=== PATIENT | female | born 1940 | race Caucasian/White ===

== ENCOUNTER → 2020-07-29 08:02 | Outpatient (BNVA) | payer MEDICARE, SELFPAY | PROVIDERS: PCP Internal Medicine; Visit Provider Anesthesiology | DX: M17.0 Bilateral primary osteoarthritis of knee (principal); M47.816 Spondylosis without myelopathy or radiculopathy, lumbar region; E66.9 Obesity, unspecified | CPT/HCPCS: 99212 ==

== ENCOUNTER 2020-08-04 07:58 | Outpatient (REF) | payer MEDICARE, SELFPAY | END 2020-08-04 07:59 | disposition home or self-care (01) | LOC: HO.RADIR 07:58 | PROVIDERS: Visit Provider Anesthesiology | DX: Z13.89 Encounter for screening for other disorder (principal) | CPT/HCPCS: J3010 ==

== ENCOUNTER 2020-08-04 12:52 | Day surgery (SDC) | payer MEDICARE, SELFPAY ==
[2020-08-04 13:07] LABS: Glucose, Whole Blood 179 mg/dL (60-115)
--- NOTE | 2020-08-04 13:12 | P.CONAN_ITS ---
FORMERLY [facility] Past Medical History Medical History Bilateral primary osteoarthritis of knee Obesity Spondylosis of lumbar spine Social History Social History Advance Directives: No Advance Directives Information Provided: Yes Meds Allergies Allergy/AdvReac Type Severity Reaction Status Date / Time dulaglutide [From TRULICITY] Allergy Unknown DROPPED Verified 08/04/20 13:15 SUGARS TOO LOW metformin [METFORMIN] Allergy Unknown GI ISSUES, Verified 08/04/20 13:15 STOMACH PAIN Gztqvvi-Uae-Ayb Reductase Allergy Unknown STOMACH Verified 08/04/20 13:15 Inhibitor ISSUES [[id number] REDUCTASE INHIBITOR] Statins Support Allergy Unknown Unknown Uncoded 07/29/20 08:17 Home Medications Medication Instructions Recorded Confirmed Type acetaminophen 500 mg tablet 500 mg PO Q6H PRN 07/29/20 07/29/20 History allopurinol 300 mg tablet 300 mg PO DAILY 07/29/20 07/29/20 History aspirin 81 mg chewable tablet 81 mg PO DAILY 07/29/20 07/29/20 History brimonidine 0.1 % eye drops 1 drp OPHTHALMIC (EYE) BID 07/29/20 07/29/20 History fenofibrate 160 mg tablet 80 mg PO DAILY 07/29/20 07/29/20 History fenofibrate 50 mg capsule 50 mg PO DAILY 07/29/20 07/29/20 History insulin degludec 200 unit/mL (3 20 unit SUBCUT DAILY 07/29/20 07/29/20 History mL) subcutaneous pen metoprolol tartrate 25 mg tablet 25 mg PO DAILY 07/29/20 07/29/20 History ropinirole 1 mg tablet mg PO 07/29/20 07/29/20 History tramadol 50 mg tablet mg PO 07/29/20 07/29/20 History valsartan 160 mg tablet 160 mg PO DAILY 07/29/20 07/29/20 History insulin aspart U-100 [Novolog unit SUBCUT 08/04/20 08/04/20 History Flexpen U-100 Insulin] insulin degludec [Tresiba unit SUBCUT 08/04/20 History FlexTouch U-200] ipratropium bromide 2 spray INTRANASAL QID PRN 08/04/20 08/04/20 History Exam Exam Date and Time: August 04, 2020 1312 Pertinent Lab Results Pertinent Lab Results: Laboratory Tests 08/04/20 13:03 POC Glucose 179 H Assessment and Plan Assessment Anesthesia Assessment: Anesthesia Plan Discussed and Chart Reviewed Final Anesthetic Review NPO: Yes ASA Class: III Final Preanesthetic Review: No Changes in Pt Med Stat, Meds/Allgs Chart Reviewed, Consent Obtained/Reviewed and Anes Risks/Benef Reviewed Patient Risk: Intermediate Procedure Risk: Low Assessment/Block/Sedation in SS: Assess/Block/Sedation-SS Anesthetic Plan Anesthetic Plan: MAC: Disposition: Standard PACU
[2020-08-04 13:15] VITALS: BP 154/70; PULSE 73; RESP 16; TEMP 36.6; O2SAT 97; BMI 34.7
--- NOTE | 2020-08-04 13:15 | P.CONAN_ITS ---
FORMERLY [facility] Past Medical History Medical History Bilateral primary osteoarthritis of knee Obesity Spondylosis of lumbar spine Social History Social History Advance Directives: No Advance Directives Information Provided: Yes Meds Allergies Allergy/AdvReac Type Severity Reaction Status Date / Time dulaglutide [From TRULICITY] Allergy Unknown DROPPED Verified 08/04/20 13:15 SUGARS TOO LOW metformin [METFORMIN] Allergy Unknown GI ISSUES, Verified 08/04/20 13:15 STOMACH PAIN Llhbdnc-Bqn-Qom Reductase Allergy Unknown STOMACH Verified 08/04/20 13:15 Inhibitor ISSUES [[id number]-DYK-VZN REDUCTASE INHIBITOR] Statins Support Allergy Unknown Unknown Uncoded 07/29/20 08:17 Home Medications Medication Instructions Recorded Confirmed Type acetaminophen 500 mg tablet 500 mg PO Q6H PRN 07/29/20 07/29/20 History allopurinol 300 mg tablet 300 mg PO DAILY 07/29/20 07/29/20 History aspirin 81 mg chewable tablet 81 mg PO DAILY 07/29/20 07/29/20 History brimonidine 0.1 % eye drops 1 drp OPHTHALMIC (EYE) BID 07/29/20 07/29/20 History fenofibrate 160 mg tablet 80 mg PO DAILY 07/29/20 07/29/20 History fenofibrate 50 mg capsule 50 mg PO DAILY 07/29/20 07/29/20 History insulin degludec 200 unit/mL (3 20 unit SUBCUT DAILY 07/29/20 07/29/20 History mL) subcutaneous pen metoprolol tartrate 25 mg tablet 25 mg PO DAILY 07/29/20 07/29/20 History ropinirole 1 mg tablet mg PO 07/29/20 07/29/20 History tramadol 50 mg tablet mg PO 07/29/20 07/29/20 History valsartan 160 mg tablet 160 mg PO DAILY 07/29/20 07/29/20 History insulin aspart U-100 [Novolog unit SUBCUT 08/04/20 08/04/20 History Flexpen U-100 Insulin] insulin degludec [Tresiba unit SUBCUT 08/04/20 History FlexTouch U-200] ipratropium bromide 2 spray INTRANASAL QID PRN 08/04/20 08/04/20 History Exam Exam Date and Time: August 04, 2020 1315 Pertinent Lab Results Pertinent Lab Results: Laboratory Tests 08/04/20 13:03 POC Glucose 179 H Airway Mallampati Class: II TM Dist: >3cm Neck ROM: Full Assessment and Plan Assessment Anesthesia Assessment: Anesthesia Plan Discussed and Chart Reviewed Final Anesthetic Review NPO: Yes ASA Class: III Final Preanesthetic Review: No Changes in Pt Med Stat, Meds/Allgs Chart Reviewed, Consent Obtained/Reviewed and Anes Risks/Benef Reviewed Patient Risk: Intermediate Procedure Risk: Low Assessment/Block/Sedation in SS: Assess/Block/Sedation-SS Anesthetic Plan Anesthetic Plan: MAC: Disposition: Standard PACU
--- NOTE | 2020-08-04 13:17 | P.CONAN_ITS ---
FORMERLY [facility], [facility] Past Medical History Medical History Bilateral primary osteoarthritis of knee Obesity Spondylosis of lumbar spine Social History Social History Advance Directives: No Advance Directives Information Provided: Yes Meds Allergies Allergy/AdvReac Type Severity Reaction Status Date / Time dulaglutide [From TRULICITY] Allergy Unknown DROPPED Verified 08/04/20 13:15 SUGARS TOO LOW metformin [METFORMIN] Allergy Unknown GI ISSUES, Verified 08/04/20 13:15 STOMACH PAIN Btlbsha-Zuo-Mjl Reductase Allergy Unknown STOMACH Verified 08/04/20 13:15 Inhibitor ISSUES [IMURCCE-DTQ-XIC REDUCTASE INHIBITOR] Statins Support Allergy Unknown Unknown Uncoded 07/29/20 08:17 Home Medications Medication Instructions Recorded Confirmed Type acetaminophen 500 mg tablet 500 mg PO Q6H PRN 07/29/20 07/29/20 History allopurinol 300 mg tablet 300 mg PO DAILY 07/29/20 07/29/20 History aspirin 81 mg chewable tablet 81 mg PO DAILY 07/29/20 07/29/20 History brimonidine 0.1 % eye drops 1 drp OPHTHALMIC (EYE) BID 07/29/20 07/29/20 History fenofibrate 160 mg tablet 80 mg PO DAILY 07/29/20 07/29/20 History fenofibrate 50 mg capsule 50 mg PO DAILY 07/29/20 07/29/20 History insulin degludec 200 unit/mL (3 20 unit SUBCUT DAILY 07/29/20 07/29/20 History mL) subcutaneous pen metoprolol tartrate 25 mg tablet 25 mg PO DAILY 07/29/20 07/29/20 History ropinirole 1 mg tablet mg PO 07/29/20 07/29/20 History tramadol 50 mg tablet mg PO 07/29/20 07/29/20 History valsartan 160 mg tablet 160 mg PO DAILY 07/29/20 07/29/20 History insulin aspart U-100 [Novolog unit SUBCUT 08/04/20 08/04/20 History Flexpen U-100 Insulin] insulin degludec [Tresiba unit SUBCUT 08/04/20 History FlexTouch U-200] ipratropium bromide 2 spray INTRANASAL QID PRN 08/04/20 08/04/20 History Exam Exam Date and Time: August 04, 2020 1317 Pertinent Lab Results Pertinent Lab Results: Laboratory Tests 08/04/20 13:03 POC Glucose 179 H Airway Mallampati Class: II TM Dist: >3cm Neck ROM: Limited Assessment and Plan Assessment Anesthesia Assessment: Anesthesia Plan Discussed and Chart Reviewed Final Anesthetic Review NPO: Yes ASA Class: III Final Preanesthetic Review: No Changes in Pt Med Stat, Meds/Allgs Chart Reviewed, Consent Obtained/Reviewed and Anes Risks/Benef Reviewed Patient Risk: Intermediate Procedure Risk: Low Assessment/Block/Sedation in SS: Assess/Block/Sedation-SS Anesthetic Plan Anesthetic Plan: MAC: Disposition: Standard PACU
--- NOTE | 2020-08-04 13:18 | P.CONAN_ITS ---
[facility] Past Medical History Medical History Bilateral primary osteoarthritis of knee Obesity Spondylosis of lumbar spine Social History Social History Smoking Status: Never smoker Use of substances other than those prescribed or required for medical reasons: No Advance Directives: No Advance Directives Information Provided: Yes Meds Allergies Allergy/AdvReac Type Severity Reaction Status Date / Time dulaglutide [From TRULICITY] Allergy Unknown DROPPED Verified 08/04/20 13:15 SUGARS TOO LOW metformin [METFORMIN] Allergy Unknown GI ISSUES, Verified 08/04/20 13:15 STOMACH PAIN Pyswidi-Daj-Cze Reductase Allergy Unknown STOMACH Verified 08/04/20 13:15 Inhibitor ISSUES [[id number] REDUCTASE INHIBITOR] Statins Support Allergy Unknown Unknown Uncoded 07/29/20 08:17 Home Medications Medication Instructions Recorded Confirmed Type acetaminophen 500 mg tablet 500 mg PO Q6H PRN 07/29/20 07/29/20 History allopurinol 300 mg tablet 300 mg PO DAILY 07/29/20 07/29/20 History aspirin 81 mg chewable tablet 81 mg PO DAILY 07/29/20 07/29/20 History brimonidine 0.1 % eye drops 1 drp OPHTHALMIC (EYE) BID 07/29/20 07/29/20 History fenofibrate 160 mg tablet 80 mg PO DAILY 07/29/20 07/29/20 History fenofibrate 50 mg capsule 50 mg PO DAILY 07/29/20 07/29/20 History insulin degludec 200 unit/mL (3 20 unit SUBCUT DAILY 07/29/20 07/29/20 History mL) subcutaneous pen metoprolol tartrate 25 mg tablet 25 mg PO DAILY 07/29/20 07/29/20 History ropinirole 1 mg tablet mg PO 07/29/20 07/29/20 History tramadol 50 mg tablet mg PO 07/29/20 07/29/20 History valsartan 160 mg tablet 160 mg PO DAILY 07/29/20 07/29/20 History insulin aspart U-100 [Novolog unit SUBCUT 08/04/20 08/04/20 History Flexpen U-100 Insulin] insulin degludec [Tresiba unit SUBCUT 08/04/20 History FlexTouch U-200] ipratropium bromide 2 spray INTRANASAL QID PRN 08/04/20 08/04/20 History Exam Exam Date and Time: August 04, 2020 1318 Pertinent Lab Results Pertinent Lab Results: Laboratory Tests 08/04/20 13:03 POC Glucose 179 H Airway Mallampati Class: II TM Dist: >3cm Neck ROM: Limited Assessment and Plan Assessment Anesthesia Assessment: Anesthesia Plan Discussed Final Anesthetic Review NPO: Yes ASA Class: III Final Preanesthetic Review: No Changes in Pt Med Stat, Meds/Allgs Chart Reviewed, Consent Obtained/Reviewed and Anes Risks/Benef Reviewed Patient Risk: Intermediate Procedure Risk: Low Assessment/Block/Sedation in SS: Assess/Block/Sedation-SS Anesthetic Plan Anesthetic Plan: MAC: Disposition: Standard PACU
--- NOTE | 2020-08-04 13:23 | HO.ANESPROP2 ---
[facility] Past Medical History Medical History Bilateral primary osteoarthritis of knee Obesity Spondylosis of lumbar spine Social History Social History Smoking Status: Never smoker Use of substances other than those prescribed or required for medical reasons: No Advance Directives: No Advance Directives Information Provided: Yes Meds Allergies Allergy/AdvReac Type Severity Reaction Status Date / Time dulaglutide [From TRULICITY] Allergy Unknown DROPPED Verified 08/04/20 13:15 SUGARS TOO LOW metformin [METFORMIN] Allergy Unknown GI ISSUES, Verified 08/04/20 13:15 STOMACH PAIN Qzsekzl-Jpa-Kab Reductase Allergy Unknown STOMACH Verified 08/04/20 13:15 Inhibitor ISSUES [NRIQALK-UBM-RTE REDUCTASE INHIBITOR] Statins Support Allergy Unknown Unknown Uncoded 07/29/20 08:17 Home Medications Medication Instructions Recorded Confirmed Type acetaminophen 500 mg tablet 500 mg PO Q6H PRN 07/29/20 07/29/20 History allopurinol 300 mg tablet 300 mg PO DAILY 07/29/20 07/29/20 History aspirin 81 mg chewable tablet 81 mg PO DAILY 07/29/20 07/29/20 History brimonidine 0.1 % eye drops 1 drp OPHTHALMIC (EYE) BID 07/29/20 07/29/20 History fenofibrate 160 mg tablet 80 mg PO DAILY 07/29/20 07/29/20 History fenofibrate 50 mg capsule 50 mg PO DAILY 07/29/20 07/29/20 History insulin degludec 200 unit/mL (3 20 unit SUBCUT DAILY 07/29/20 07/29/20 History mL) subcutaneous pen metoprolol tartrate 25 mg tablet 25 mg PO DAILY 07/29/20 07/29/20 History ropinirole 1 mg tablet mg PO 07/29/20 07/29/20 History tramadol 50 mg tablet mg PO 07/29/20 07/29/20 History valsartan 160 mg tablet 160 mg PO DAILY 07/29/20 07/29/20 History insulin aspart U-100 [Novolog unit SUBCUT 08/04/20 08/04/20 History Flexpen U-100 Insulin] insulin degludec [Tresiba unit SUBCUT 08/04/20 History FlexTouch U-200] ipratropium bromide 2 spray INTRANASAL QID PRN 08/04/20 08/04/20 History Exam Exam Date and Time: August 04, 2020 1323 Height,Weight and Vital Signs: Height 5 ft 3 in Weight 88.904 kg Last Vital Signs Temp 97.9 F 08/04/20 13:15 Pulse 73 08/04/20 13:15 Resp 16 08/04/20 13:15 BP 154/70 H 08/04/20 13:15 Pulse Ox 97 08/04/20 13:15 Pertinent Lab Results Pertinent Lab Results: Laboratory Tests 08/04/20 13:03 POC Glucose 179 H Airway TM Dist: >3cm Neck ROM: Limited Assessment and Plan Assessment Anesthesia Assessment: Anesthesia Plan Discussed Final Anesthetic Review NPO: Yes ASA Class: III Final Preanesthetic Review: No Changes in Pt Med Stat, Meds/Allgs Chart Reviewed, Consent Obtained/Reviewed and Anes Risks/Benef Reviewed Patient Risk: Intermediate Procedure Risk: Low Assessment/Block/Sedation in SS: Assess/Block/Sedation-SS Anesthetic Plan Anesthetic Plan: MAC: Disposition: Standard PACU
--- NOTE | 2020-08-04 13:33 | FL_ITS ---
INDICATION: Intraoperative fluoroscopy. FLUOROSCOPY: Fluoroscopy Time: 2.4 minutes Dose: 90.1 mGy Images saved: 4 FINDINGS: Multiple intraoperative fluoroscopic images are submitted during reported spinal stimulator trial. Correlation with operative report. Evaluation is limited secondary to fluoroscopic technique. IMPRESSION: Intra-operative fluoroscopic imaging provided by radiology during reported spinal stimulator trial. Please refer to operative note for further information.
[2020-08-04] MEDS: Lactated Ringers 1,000 ML 50 ML IVCONT (13:50)
--- NOTE | 2020-08-04 13:54 | MHC.SHP ---
Pre-Procedural Eval Section A The patient is an INPATIENT: No Changes since office visit: Yes Patient answered all questions The History & Physical has been completed within 30 days and I have reviewed it.: No Section B Chief Complaint: madi primary osteoarthritis of knee Details of Present Illness: knee osteoarthritis left Relevant Family History (Specify if Yes): No Relevant Social History: None Present Medications: None Medical History: No relevant PMH Allergies: Allergies Allergy/AdvReac Type Severity Reaction Status Date / Time dulaglutide [From TRULICITY] Allergy Unknown DROPPED Verified 08/04/20 13:15 SUGARS TOO LOW metformin [METFORMIN] Allergy Unknown GI ISSUES, Verified 08/04/20 13:15 STOMACH PAIN Eknrhbh-Kqb-Zvc Reductase Allergy Unknown STOMACH Verified 08/04/20 13:15 Inhibitor ISSUES [[id number] REDUCTASE INHIBITOR] Statins Support Allergy Unknown Unknown Uncoded 07/29/20 08:17 Review of Systems Sugical H&P ROS: Negative: Cardiovascular, Respiratory, Neurological, Psychiatric, Hem-Onc, Allergic/Immunologic, Gastrointestinal, Genitourinary, Musculoskeletal, Integumentary, Endocrine and Eyes/Ears/Nose/Throat and Yes, Specify: Constitution (obesity) Exam Surgical H&P Exam: Normal: HEENT, Normal: Heart, Normal: Lungs, Normal: Extremities, Normal: Skin and Normal: Neurological and Significant Findings: Abdomen (obesity) Plan Diagnosis/Plan: Change I have reviewed the history and physical and performed a pertinent physical examination on my patient. No changes have occurred unless specified.
[2020-08-04 15:35] VITALS: BP 136/54; PULSE 64; RESP 16; TEMP 36.4; O2SAT 98
[2020-08-04 15:50] VITALS: BP 144/45; PULSE 61; RESP 18; O2SAT 100
[2020-08-04] MEDS: Acetaminophen 325 MG TABLET 650 MG PO (16:04)
[2020-08-04 16:05] VITALS: BP 123/56; PULSE 66; RESP 16; O2SAT 100
[2020-08-04 16:20] VITALS: BP 140/64; PULSE 68; RESP 18; O2SAT 100
--- NOTE | 2020-08-04 16:41 | PM.OP ---
Brief Operative Note Date of Service: 08/04/20 Pre-op diagnosis: Left knee osteoarthritis Post-op diagnosis: same Implants: None permanent Surgeon: Jameson Carrasco MD Anesthesia: MAC Estimated blood loss (mL): 0 Condition: stable Disposition: PACU
--- NOTE | 2020-08-04 16:45 | P.OP_ITS ---
Operative Note Operative Note Date of Service: 08/04/20 Narrative: After obtaining informed consent the patient was brought to the operating room, SHE was positioned prone on operating table, [employer] monitors were applied and patient was deeply sedated. The patient was taken inside of the operating room where she was positioned prone operating table. Time-out was performed delineating correct site, side, the nature of the procedure, patient's allergy, preoperative antibiotic if needed. All operating room staff was participating in OR time-out procedure. Patient's entire back was prepped with ChloraPrep twice and draped with full body fenestrated drape. Sterilely draped C-arm was brought over operating field and square picture of L1 through L5 vertebrae sequentially were demonstrated on the screen. Attention FIRST was concentrated on the L5-S1 epidural interspace. The location of the projection of the left pedicle center of the sacral bone was found on the skin using C-arm. This location was injected with mixture of lidocaine 2% and Marcaine 0.5% 5 cc. After that 11 blade was used to make a endy on the skin. Ten cm 14 gauge curved introducer epidural needle was inserted through the endy and advanced to the left L5-S1 epidural interspace. The advancement of the needle was performed on anterior posterior and lateral views. Guitar wire and loss of resistance technique were used to locate epidural space. When guitar wire was spread in the epidural fashion, epidural lead was inserted through the skin and it was advanced to L2-L3 L4 position in the left gutter. It was 16 contacts electrode used for the advancement. After that location of the projection of the left pedicle center of the L3 vertebra was found on the skin using C-arm. This location was injected with mixture of lidocaine 2% and Marcaine 0.5% 5 cc. After that 11 blade was used to make a endy on the skin. Ten cm 14 gauge curved introducer epidural needle was inserted through the endy and advanced to L1-L2 epidural interspace. The advancement of the needle was performed on anterior posterior and lateral views. Guitar wire and loss of resistance technique were used to locate epidural space. When guitar wire was spread in the epidural fashion, epidural lead was inserted through the needle and advanced to the T 9 mid body projection slightly to the left of midline. At this moment patient was awaken and the epidural leads were connected to the testing device. The patient reported stimulation corresponding to her pain. After satisfactory position of the leads were established the needles were withdrawn, the stylette wires were removed from the epidural leads. The anchoring devices were dislodged on the leads and advanced to the level of the skin. The anchoring devices were sutured with two 0-0 silk sutures to the skin of the patient. The leads were connected to testing device. Bacitracin ointment was applied to the entrance point of the needles. Sterile dressing was applied to the patient's back. The testing device was also glued to the patient's back. Upon completion of the procedure the patient was taken to PACU where SHE recovered and UNEVENTFULLY, SHE WENT HOME WITHOUT IMMEDIATE COMPLICATIONS. , she will continue to use ANTIBIOTICS: Keflex 750 mg every 6 hours for the next 6 days while she is on the trial.
== END 2020-08-04 17:25 | disposition home or self-care (01) ==
PROVIDERS: PCP Internal Medicine; Visit Provider Anesthesiology
PROC: (CPT 63650; principal; 2020-08-04 14:00)
DX: M17.0 Bilateral primary osteoarthritis of knee (principal); M47.816 Spondylosis without myelopathy or radiculopathy, lumbar region; E66.9 Obesity, unspecified; Z96.653 Presence of artificial knee joint, bilateral; E11.22 Type 2 diabetes mellitus with diabetic chronic kidney disease; I12.9 Hypertensive chronic kidney disease with stage 1 through stage 4 chronic kidney disease, or unspecified chronic kidney disease; N18.30 Chronic kidney disease, stage 3 unspecified; E11.3293 Type 2 diabetes mellitus with mild nonproliferative diabetic retinopathy without macular edema, bilateral; E11.21 Type 2 diabetes mellitus with diabetic nephropathy; E11.40 Type 2 diabetes mellitus with diabetic neuropathy, unspecified; Z66 Do not resuscitate; Z79.899 Other long term (current) drug therapy; Z79.84 Long term (current) use of oral hypoglycemic drugs; Z79.82 Long term (current) use of aspirin
CPT/HCPCS: 63650 ×2; 82947; C1778; C1897; J0690; J3010

== ENCOUNTER → 2020-08-10 15:23 | Outpatient (BNVA) | payer MEDICARE, SELFPAY | PROVIDERS: PCP Internal Medicine; Visit Provider Anesthesiology | DX: M17.0 Bilateral primary osteoarthritis of knee (principal); M47.816 Spondylosis without myelopathy or radiculopathy, lumbar region; E66.9 Obesity, unspecified | CPT/HCPCS: 99212 ==

== ENCOUNTER → 2020-09-10 09:59 | Outpatient (BNVA) | payer MEDICARE, SELFPAY | PROVIDERS: PCP Internal Medicine; Visit Provider Anesthesiology | DX: M17.0 Bilateral primary osteoarthritis of knee (principal); Z79.899 Other long term (current) drug therapy | CPT/HCPCS: Q3014 ==

== ENCOUNTER 2020-11-12 12:21 | Outpatient (REF) | payer MEDICARE, SELFPAY ==
[2020-11-12 13:50] LABS: MANUAL DIFF FLAG NO
[2020-11-12 14:01] LABS: Basophils Percent Auto 0.5 % (0-2); Eosinophils Absolute Auto 0.1 X10*3/uL (0.0-0.4); Eosinophils Percent Auto 2.1 % (0-4); Hemoglobin 12.4 g/dl (12.0-16.0); Imm Gran Abs Auto 0.02 X10*3/uL (0.00-0.03); Imm Gran Pct Auto 0.4 % (0.0-0.4); Lymphocytes Absolute Auto 0.9 X10*3/uL (1.2-4.9); Mean Corpuscular HGB Conc 33.5 g/dl (31.0-35.0); Mean Corpuscular Hemoglobin 32.5 pg (27.0-33.0); Mean Corpuscular Volume 97.1 fL (80-98); Mean Platelet Volume 12.3 fL (9.4-12.3); Monocytes Absolute Auto 0.4 X10*3/uL (0.1-1.2); Monocytes Percent Auto 6.3 % (2-11); Neutrophils Absolute Auto 4.2 X10*3/uL (2.0-8.3); Neutrophils Percent Auto 74.7 % (45-73); Platelet Count 106 X10*3/uL (160-400); Red Blood Count 3.81 X10*6/uL (4.20-5.50); Red Cell Distribution Width 14.9 % (11.0-16.0); White Blood Count 5.7 X10*3/uL (4.8-10.8)
[2020-11-12 14:21] LABS: Anion Gap 12 (12-20); Blood Urea Nitrogen 38 mg/dL (9-16); Calcium 9.7 mg/dL (8.4-10.2); Carbon Dioxide 23 mmol/L (22-29); Chloride 108 mmol/L (96-108); Estimated Glomerular Filt Rate 38; Glucose Random 325 mg/dL (60-115); Potassium 4.5 mmol/L (3.3-5.1); Sodium 138 mmol/L (135-145)
== END 2020-11-12 12:22 | disposition home or self-care (01) ==
LOC: HO.10HDL 12:21
PROVIDERS: Visit Provider Anesthesiology
DX: N28.9 Disorder of kidney and ureter, unspecified (principal); D69.6 Thrombocytopenia, unspecified
CPT/HCPCS: 36415; 80048; 85025

== ENCOUNTER 2020-11-13 06:06 | Day surgery (SDC) | payer MEDICARE, SELFPAY ==
[2020-11-09 13:55] VITALS: BMI 34.7
--- NOTE | 2020-11-11 09:54 | P.CONAN_ITS ---
Documented by User: Laina Johnstonney 11/11/20 09:55 HPI - Anesthesia Eval Consult details Narrative: 80yo F for Lumbar Spinal Stimulation Implant s/p implant trial with MAC 08/2020 [facility] Active Problems Active Problems: All Active Problems (Updated 11/09/20 @ 14:15 by Elodia Willson) Spondylosis of lumbar spine (Acute) Obesity (Acute) Bilateral primary osteoarthritis of knee (Acute) Past Medical History Medical History Back pain Bilateral primary osteoarthritis of knee COVID-19 vaccine series completed Glaucoma Heart murmur History of high cholesterol Hx of acute pulmonary edema Hx of acute renal failure Hx of acute respiratory failure Hypertension IDDM (insulin dependent diabetes mellitus) Migraines Narrow mouth Obesity Pain Renal insufficiency Sleep apnea Spondylosis of lumbar spine Thrombocytopenia Surgical History Surgical History H/O total knee replacement History of carpal tunnel release of both wrists Hx of bilateral oophorectomy Hx of thyroidectomy Social History Social History Alcohol intake: never Smoking Status: Never smoker Are you DNR?: No Advance Directives: No Advance Directives Information Provided: No Advance Directives on File: No Meds Allergies Allergy/AdvReac Type Severity Reaction Status Date / Time d[facility]aglutide [facility] Allergy Intermediate DROPPED Verified 11/09/20 13:43 SUGARS TOO LOW metformin [METFORMIN] Allergy Intermediate GI ISSUES, Verified 11/09/20 13:43 STOMACH PAIN Wjqripk-Rtb-Hxj Reductase Allergy Intermediate STOMACH Verified 11/09/20 13:43 Inhibitor ISSUES [CSTVSIR-PIE-ABG REDUCTASE INHIBITOR] Home Medications Medication Instructions Recorded Confirmed Last Taken Type allopurinol 300 mg tablet 300 mg PO BEDTIME 07/29/20 11/09/20 Unknown History aspirin 81 mg chewable tablet 81 mg PO DAILY 07/29/20 11/09/20 11/01/20 18:00 History brimonidine 0.1 % eye drops 1 drp OPHTHALMIC (EYE) BEDTIME 07/29/20 11/09/20 Unknown History fenofibrate 160 mg tablet 80 mg PO DAILY 07/29/20 11/09/20 Unknown History insulin degludec 200 unit/mL (3 80 unit SUBCUT DAILY@0730 07/29/20 11/09/20 Unknown History mL) subcutaneous pen metoprolol tartrate 25 mg tablet 25 mg PO BID 07/29/20 11/09/20 11/13/20 04:45 History ropinirole 1 mg tablet 1 mg PO BID 07/29/20 11/09/20 Unknown History tramadol 50 mg tablet 50 mg PO QID 07/29/20 11/09/20 11/13/20 04:45 History valsartan 160 mg tablet 80 mg PO BEDTIME 07/29/20 11/09/20 08/04/20 08:00 History ipratropium bromide 2 spray INTRANASAL QID PRN 08/04/20 11/09/20 Unknown History bimatoprost [Lumigan] drp 11/09/20 Unknown History insulin aspart U-100 [Novolog unit SUBCUT 11/09/20 11/09/20 Unknown History Flexpen U-100 Insulin] nprduorvzlnm-bwxbruef-jaizua 1 tab PO DAILY 11/09/20 11/09/20 Unknown History [Centrum Silver] topiramate 50 mg PO DAILY@0730 11/09/20 11/09/20 Unknown History Exam Exam Date and Time: November 11, 2020 0954 Height,Weight and Vital Signs: Height 5 ft 3 in Weight 88.904 kg Assessment and Plan Assessment Anesthesia Assessment: Chart Reviewed Documented by User: Faiza Velez 11/13/20 08:01 [facility] Past Medical History Medical History Back pain Bilateral primary osteoarthritis of knee COVID-19 vaccine series completed Glaucoma Heart murmur History of high cholesterol Hx of acute pulmonary edema Hx of acute renal failure Hx of acute respiratory failure Hypertension IDDM (insulin dependent diabetes mellitus) Migraines Narrow mouth Obesity Pain Renal insufficiency Sleep apnea Spondylosis of lumbar spine Thrombocytopenia Surgical History Surgical History H/O total knee replacement History of carpal tunnel release of both wrists Hx of bilateral oophorectomy Hx of thyroidectomy Social History Social History Alcohol intake: never Smoking Status: Never smoker Are you DNR?: No Advance Directives: No Advance Directives Information Provided: No Advance Directives on File: No Meds Allergies Allergy/AdvReac Type Severity Reaction Status Date / Time dulaglutide [From TRULICITY] Allergy Intermediate DROPPED Verified 11/09/20 13:43 SUGARS TOO LOW metformin [METFORMIN] Allergy Intermediate GI ISSUES, Verified 11/09/20 13:43 STOMACH PAIN Btxqfxl-Iuf-Afz Reductase Allergy Intermediate STOMACH Verified 11/09/20 13:43 Inhibitor ISSUES [WUAGCYR-SOB-VTT REDUCTASE INHIBITOR] Home Medications Medication Instructions Recorded Confirmed Last Taken Type allopurinol 300 mg tablet 300 mg PO BEDTIME 07/29/20 11/09/20 Unknown History aspirin 81 mg chewable tablet 81 mg PO DAILY 07/29/20 11/09/20 11/01/20 18:00 History brimonidine 0.1 % eye drops 1 drp OPHTHALMIC (EYE) BEDTIME 07/29/20 11/09/20 Unknown History fenofibrate 160 mg tablet 80 mg PO DAILY 07/29/20 11/09/20 Unknown History insulin degludec 200 unit/mL (3 80 unit SUBCUT DAILY@0730 07/29/20 11/09/20 Unknown History mL) subcutaneous pen metoprolol tartrate 25 mg tablet 25 mg PO BID 07/29/20 11/09/20 11/13/20 04:45 History ropinirole 1 mg tablet 1 mg PO BID 07/29/20 11/09/20 Unknown History tramadol 50 mg tablet 50 mg PO QID 07/29/20 11/09/20 11/13/20 04:45 History valsartan 160 mg tablet 80 mg PO BEDTIME 07/29/20 11/09/20 08/04/20 08:00 History ipratropium bromide 2 spray INTRANASAL QID PRN 08/04/20 11/09/20 Unknown History bimatoprost [Lumigan] drp 11/09/20 Unknown History insulin aspart U-100 [Novolog unit SUBCUT 11/09/20 11/09/20 Unknown History Flexpen U-100 Insulin] dzclzpmnrmnh-dpexjwff-smegxr 1 tab PO DAILY 11/09/20 11/09/20 Unknown History [Centrum Silver] topiramate 50 mg PO DAILY@0730 11/09/20 11/09/20 Unknown History Exam Airway Mallampati Class: III TM Dist: >3cm Neck ROM: Full
[2020-11-13] VITALS (7 sets, daily range): BP systolic 119–174; BP diastolic 41–76; PULSE 53–71; RESP 14–18; TEMP 36.4–36.5; O2SAT 94–99
--- NOTE | ~2020-11-13 | FL_ITS ---
EXAMINATION: XR FLUOROSCOPY WITH IMAGES CLINICAL INFORMATION: Spinal stimulator implant. COMPARISON: None. TECHNIQUE: Fluoroscopy performed by Dr. Jameson Carrasco. Fluoroscopy time: 6.4 minutes DAP: 41.7 mGycm2 Images: 4 FINDINGS: There is a posterior epidural stimulator posterior to T11 and T12 vertebrae. Moderate spondylosis seen in lower dorsal and upper lumbar spine. FL/FL guidance in OR IMPRESSION: Fluoroscopy was provided to Dr. Jameson Carrasco for spinal stimulator implant.
[2020-11-13 06:54] LABS: Glucose, Whole Blood 201 mg/dL (60-115)
[2020-11-13] MEDS: Lactated Ringers 1,000 ML 50 ML IV (07:03)
--- NOTE | 2020-11-13 07:26 | P.BOP_ITS ---
Brief Operative Note Date of Service: 11/13/20 Pre-op diagnosis: Complex regional pain syndrome left lower extremity, osteoarthritis left knee. Post-op diagnosis: same Procedure: Implantation of the spinal cord stimulator [employer]. Implants: Alpha battery [employer] and 2 epidural leads. Surgeon: Jameson Carrasco MD Anesthesia: GLMA Was an Senior [employer] Net Developer used for this Procedure?: No Estimated blood loss (mL): 12 Pathology: none sent Condition: stable Disposition: PACU
--- NOTE | 2020-11-13 07:26 | MHC.SHP ---
Pre-Procedural Eval Section A The patient is an INPATIENT: No Changes since office visit: Yes Patient answered all questions The History & Physical has been completed within 30 days and I have reviewed it.: No Section B Chief Complaint: Bilateral Primary osteoarthritis of knee Details of Present Illness: as above Relevant Family History (Specify if Yes): No Relevant Social History: None Present Medications: None Medical History: No relevant PMH History of Previous Operations: Relevant previous surgery/procedure and date(s) Allergies: Allergies Allergy/AdvReac Type Severity Reaction Status Date / Time dulaglutide [From TRULICITY] Allergy Intermediate DROPPED Verified 11/09/20 13:43 SUGARS TOO LOW metformin [METFORMIN] Allergy Intermediate GI ISSUES, Verified 11/09/20 13:43 STOMACH PAIN Jxkkpbl-Vnv-Ncx Reductase Allergy Intermediate STOMACH Verified 11/09/20 13:43 Inhibitor ISSUES [ANFIODP-ANE-FMB REDUCTASE INHIBITOR] Review of Systems Sugical H&P ROS: Negative: Cardiovascular, Respiratory, Neurological, Psychiatric, Hem-Onc, Allergic/Immunologic, Gastrointestinal, Genitourinary, Integumentary, Endocrine and Eyes/Ears/Nose/Throat and Yes, Specify: Constitution (obesity) and Musculoskeletal (osteoarthritis) Exam Surgical H&P Exam: Normal: HEENT, Normal: Heart, Normal: Lungs, Normal: Extremities, Normal: Abdomen, Normal: Skin and Normal: Neurological Plan Diagnosis/Plan: Unchanged I have reviewed the history and physical and performed a pertinent physical examination on my patient. No changes have occurred unless specified.
--- NOTE | 2020-11-13 10:55 | P.OP_ITS ---
Operative Note Operative Note Date of Service: 11/13/20 Narrative: Chasity is 80 y.o. lady who came today into the operating room for implantation of spinal cord stimulator for the treatment of Complex regional pain syndrome of left lower extremity and osteoarthritis of the left knee.. She had a successful trial of spinal cord stimulation. Today patient came to the operating room for spinal cord stimulation implantation. Preoperatively patient received _ 2 g cefazolin _approximately 30 minutes _before procedure. After obtaining informed consent patient was brought to the operating room, she was positioned prone on operating table, [employer] monitors were applied and patient was deeply sedated. Time-out was performed delineating correct site, side, the nature of the procedure, patient's allergy, preoperative antibiotic. All operating room staff was participating in OR time-out procedure. Patient's entire back was prepped with ChloraPrep twice and draped with full body drape including Ioban film. Sterilely draped C-arm was brought over ope rating field and square picture of sacral bone and L4-5 vertebrae as were demonstrated on the screen. THE PROJECTION OF L5 AND S1 SPINAL PROCESSES WAS INFILTRATED WITH MIXTURE OF LOCAL ANESTHETICS ABOVE AND 4 CM LONG INCISION WAS PERFORMED in midline FASHION. After that location of the projection of the LEFT S1 LAMINA was found on the skin using C-arm. This location was injected with mixture of lidocaine 2% and Marcaine 0.5% 5 cc. After that 11 blade was used to make a endy on the fascia. 10 cm 14 gauge STRAIGHT EPIDURAL NEEDLE was inserted through the fascia and advanced to L5-S1 epidural interspace. The advancement of the needle was performed on anterior posterior and lateral views. Unfortunately at this moment patient started to get obstructed she has a obstructive sleep apnea. Anesthesiology had to insert LMA into the patient's larynx and induced general anesthesia, the patient remained prone. The procedure of insertion of the needle after that was repeated again. Guitar wire and loss of resistance technique were used to locate epidural space. When guitar wire was spread in the epidural fashion, epidural lead was inserted through the needle and advanced to the left SIDE OF THE EPIDURAL SPACE IN THE PROJECTION OF L3 AND L4 VERTEBRAE. THE PROJECTION OF L2-L3 SPINAL PROCESSES TO THE SKIN WERE INFILTRATED WITH LIDOCAINE 2% MIXED WITH BUPIVACAINE 0.5%. Five cm LONG VERTICAL INCISION using 15 blade scalpel WAS PERFORMED IN STRICT MIDLINE VERTICAL FASHION. THOROUGH HEMOSTASIS WAS PERFORMED. Thorough tissue dissections was performed until prevertebral fascia was freed from overlying tissues. Attention FIRST was concentrated on the RIGHT L1-L2 epidural interspace. The location of the projection of the right pedicle center of the L2 vertebra was found on the prevertebral fascia using C-arm. This location was injected with mixture of lidocaine 2% and Marcaine 0.5% 5 cc in approximate direction of needle advancement.. After that 10 cm 14 gauge straight Touhy introducer epidural needle was inserted through the fascia and advanced toward T12-L1 epidural interspace. The advancement of the needle was performed on anterior posterior and lateral views. Guitar wire and loss of resistance technique were used to locate epidural space. When guitar wire was spread in the epidural fashion, epidural lead was inserted through the skin and it was advanced to T9 position POSTERIOR EPIDURAL SPACE slightly left to the midline. Unfortunately wake-up test was not performed because the patient was under general anesthesia with LMA in her throat. Only impedance was checked on both leads. AFTER THAT the needles were withdrawn, the stylette wires were removed from the epidural leads. The anchoring devices were dislodged on the leads and adva nced to the level of the fascia. They were sutured to prevertebral fascia with 2 separate Tycron sutures PER each anchoring device. After that the wound was irrigated with copious amount of VANCOMYCIN containing normal saline and packed with bacitracin soaked 4 x 4. After that attention was concentrated on left upper buttock of the patient where she wanted battery to be implanted. 6 cm long horizontal incision was performed 2. cm below the TOP LEFT iliac crest. Thorough hemostasis was obtained. The wound was irrigated with copious amount of Vancomycin contained normal saline. Tunneling device was used to connect midline wound of the upper back with midline wound in the lower back and the epidural leads from the upper back was dislodged into the wound in the lower back. After that the tunneling device was used again to connect side wound with the lower back wound and both leads were dislodged into the side wound. Sign wound was carefully irrigated with vancomycin containing irrigation. Tycron sutures were used to perform anchoring sutures and most superior lateral and most superior medial corners of the wound. The electrodes were connected to the lower outlets of the battery and the screws were tight. Impedance was checked and was adequate. The screws on the upper portions of the battery were also screwed down to hold the plugging devices in. The wounds were irrigated again with vancomycin containing normal saline, After that 0 sutures were used to closed all 3 wounds. 2-0 sutures were used to approximate the skin levels. And leticia were applied to the skin level. Bacitracin ointment was applied to the staple line. Sterile dressing was applied to each of the wound using 4x4s and Tegaderm dressing. The abdominal binder was applied. Patient was awaken turned on to the stretcher and transferred to recovery room where he recovered uneventfully. Grafts or Implants: [employer] lids and generator alpha system.
== END 2020-11-13 12:15 | disposition home or self-care (01) ==
PROVIDERS: PCP Internal Medicine; Visit Provider Anesthesiology
PROC: (CPT 63685; principal; 2020-11-13 07:30)
DX: M17.12 Unilateral primary osteoarthritis, left knee (principal); G90.522 Complex regional pain syndrome I of left lower limb; M47.816 Spondylosis without myelopathy or radiculopathy, lumbar region; R26.2 Difficulty in walking, not elsewhere classified; Z96.653 Presence of artificial knee joint, bilateral; G47.33 Obstructive sleep apnea (adult) (pediatric); E66.9 Obesity, unspecified; D69.6 Thrombocytopenia, unspecified; I10 Essential (primary) hypertension; E11.9 Type 2 diabetes mellitus without complications; N28.9 Disorder of kidney and ureter, unspecified; Z79.4 Long term (current) use of insulin; Z79.82 Long term (current) use of aspirin; Z79.899 Other long term (current) drug therapy; Z99.89 Dependence on other enabling machines and devices; Z66 Do not resuscitate
CPT/HCPCS: 63685; 63650 ×2; 82947; C1713; C1778; C1787; C1820; J0690; J2405; J2765; J3010; J3370

== ENCOUNTER 2020-11-18 10:42 | Outpatient (REF) | payer MEDICARE, SELFPAY ==
--- NOTE | ~2020-11-18 | US_ITS ---
EXAMINATION: US VENOUS ULTRASOUND WITH DOPPLER LOWER EXTREMITY, RIGHT CLINICAL INFORMATION: Swelling COMPARISON: None TECHNIQUE: Ultrasound of the deep veins is performed from the hip to the calf with compression sonography and color and pulse Doppler assessment. Spectral analysis with color-flow imaging is performed. FINDINGS: There is normal venous compression and respiratory variation and augmented flow. The visualized common femoral vein, superficial femoral vein, profunda femoral vein, popliteal vein, and the trifurcation region shows no evidence of deep venous thrombosis. There is no significant popliteal fossa cyst. US/US venous duplex LE RT IMPRESSION: No DVT demonstrated in the right lower extremity.
== END 2020-11-18 10:43 | disposition home or self-care (01) ==
LOC: HO.HMGCX 10:42
PROVIDERS: Visit Provider Nurse Practitioner Family
DX: M79.89 Other specified soft tissue disorders (principal)
CPT/HCPCS: 93971

== ENCOUNTER → 2020-11-19 11:04 | Outpatient (BNVA) | payer MEDICARE, SELFPAY | PROVIDERS: PCP Internal Medicine; Visit Provider Anesthesiology | DX: M17.0 Bilateral primary osteoarthritis of knee (principal); M47.816 Spondylosis without myelopathy or radiculopathy, lumbar region; E66.9 Obesity, unspecified; Z79.899 Other long term (current) drug therapy | CPT/HCPCS: 99212 ==

== ENCOUNTER → 2020-11-25 10:52 | Outpatient (BNVA) | payer MEDICARE, SELFPAY | PROVIDERS: PCP Internal Medicine; Visit Provider Anesthesiology | DX: M17.0 Bilateral primary osteoarthritis of knee (principal); M47.816 Spondylosis without myelopathy or radiculopathy, lumbar region; E66.9 Obesity, unspecified | CPT/HCPCS: 99212 ==

== ENCOUNTER → 2020-12-17 11:31 | Outpatient (BNVA) | payer MEDICARE, SELFPAY | PROVIDERS: PCP Internal Medicine; Visit Provider Anesthesiology | DX: M17.0 Bilateral primary osteoarthritis of knee (principal); M47.816 Spondylosis without myelopathy or radiculopathy, lumbar region; E66.9 Obesity, unspecified | CPT/HCPCS: Q3014 ==

== ENCOUNTER → 2020-12-18 10:52 | Outpatient (BNVA) | payer MEDICARE, SELFPAY | PROVIDERS: PCP Internal Medicine; Visit Provider Anesthesiology | DX: Z96.82 Presence of neurostimulator (principal) | CPT/HCPCS: 99211 ==

== ENCOUNTER → 2020-12-21 09:06 | Outpatient (BNVA) | payer MEDICARE, SELFPAY | PROVIDERS: PCP Internal Medicine; Visit Provider Anesthesiology | DX: M17.0 Bilateral primary osteoarthritis of knee (principal); E66.9 Obesity, unspecified; M47.816 Spondylosis without myelopathy or radiculopathy, lumbar region | CPT/HCPCS: 99212 ==

== ENCOUNTER → 2020-12-24 13:35 | Outpatient (BNVA) | payer MEDICARE, SELFPAY | PROVIDERS: PCP Internal Medicine; Visit Provider Anesthesiology | DX: M17.0 Bilateral primary osteoarthritis of knee (principal); M47.816 Spondylosis without myelopathy or radiculopathy, lumbar region | CPT/HCPCS: 99212 ==

== ENCOUNTER → 2020-12-30 12:40 | Outpatient (BNVA) | payer MEDICARE, SELFPAY | PROVIDERS: PCP Internal Medicine; Visit Provider Anesthesiology | DX: M17.0 Bilateral primary osteoarthritis of knee (principal); M47.816 Spondylosis without myelopathy or radiculopathy, lumbar region; E66.9 Obesity, unspecified | CPT/HCPCS: 99212 ==

== ENCOUNTER → 2021-01-07 12:55 | Outpatient (BNVA) | payer MEDICARE, SELFPAY | PROVIDERS: PCP Internal Medicine; Visit Provider Anesthesiology | DX: M47.816 Spondylosis without myelopathy or radiculopathy, lumbar region (principal); M17.0 Bilateral primary osteoarthritis of knee; E78.00 Pure hypercholesterolemia, unspecified; I10 Essential (primary) hypertension; E66.9 Obesity, unspecified; R01.1 Cardiac murmur, unspecified; Z96.82 Presence of neurostimulator | CPT/HCPCS: 99212 ==

== ENCOUNTER 2021-05-07 07:49 | Outpatient (RCR) | payer MEDICARE, SELFPAY ==
--- NOTE | ~2021-05-07 | XR_ITS ---
EXAMINATION: XR FOOT, LEFT CLINICAL INFORMATION: Left foot pain. Suspected osteomyelitis of first metatarsal head. COMPARISON: None TECHNIQUE: AP, lateral, and oblique views of the left foot. FINDINGS: Mild hallux valgus deformity is noted. Mild degenerative osteoarthrosis is seen at the first MTP joint. Overlying soft tissue swelling and focal ulceration is noted at the level of the head of the first metatarsal. No evidence of any soft tissue gas seen. No evidence of any cortical destruction, periosteal reaction present. The remainder of the visualized bones show satisfactory alignment and intact cortices. Note is made of small posterior plantar calcaneal spur and evidence of vasculopathy. XR/XR foot LT min 3V IMPRESSION: 1. Mild hallux valgus deformity and mild degenerative osteoarthrosis at the first MTP joint. 2. Soft tissue swelling with focal ulceration is noted overlying the head of the fifth metatarsal without any radiographic evidence of underlying definite osteomyelitis. No evidence of any soft tissue gas. 3. Small posterior plantar calcaneal spur and evidence of vasculopathy.
[2021-05-10 09:32] LABS: MANUAL DIFF FLAG NO
[2021-05-10 10:31] LABS: Basophils Percent Auto 0.7 % (0-2); Eosinophils Absolute Auto 0.2 X10*3/uL (0.0-0.4); Eosinophils Percent Auto 3.2 % (0-4); Hematocrit 37.7 % (37.0-47.0); Hemoglobin 12.5 g/dl (12.0-16.0); Imm Gran Abs Auto 0.03 X10*3/uL (0.00-0.03); Imm Gran Pct Auto 0.5 % (0.0-0.4); Lymphocytes Absolute Auto 0.8 X10*3/uL (1.2-4.9); Lymphocytes Percent Auto 13.5 % (20-40); Mean Corpuscular HGB Conc 33.2 g/dl (31.0-35.0); Mean Corpuscular Hemoglobin 32.6 pg (27.0-33.0); Mean Corpuscular Volume 98.4 fL (80.0-98.0); Mean Platelet Volume 12.9 fL (9.4-12.3); Monocytes Absolute Auto 0.6 X10*3/uL (0.1-1.2); Monocytes Percent Auto 9.9 % (2-11); Neutrophils Percent Auto 72.2 % (45-73); Platelet Count 113 X10*3/uL (160-400); Red Blood Count 3.83 X10*6/uL (4.20-5.50); Red Cell Distribution Width 14.9 % (11.0-16.0); White Blood Count 5.6 X10*3/uL (4.8-10.8)
[2021-05-10 10:56] LABS: Anion Gap 12 (12-20); Blood Urea Nitrogen 56 mg/dL (9-16); C Reactive Protein 0.11 mg/dL (< or = 0.50); Calcium 9.9 mg/dL (8.4-10.2); Carbon Dioxide 23 mmol/L (22-29); Chloride 110 mmol/L (96-108); Estimated Glomerular Filt Rate 28; Glucose Random 172 mg/dL (60-115); Potassium 5.3 mmol/L (3.3-5.1); Sodium 140 mmol/L (135-145)
[2021-05-10 11:29] LABS: Erythrocyte Sedimentation Rate 10 MM/HR (0-20)
== END 2021-07-01 15:29 | disposition home or self-care (01) ==
LOC: HO.WCC 07:49
PROVIDERS: PCP Internal Medicine; Visit Provider Physician Assistant
DX: E11.621 Type 2 diabetes mellitus with foot ulcer (principal); L97.512 Non-pressure chronic ulcer of other part of right foot with fat layer exposed; I87.331 Chronic venous hypertension (idiopathic) with ulcer and inflammation of right lower extremity; I10 Essential (primary) hypertension; L84 Corns and callosities; M21.612 Bunion of left foot; M20.42 Other hammer toe(s) (acquired), left foot; M19.072 Primary osteoarthritis, left ankle and foot; Z79.4 Long term (current) use of insulin
CPT/HCPCS: 11042; 15275; 36415; 73630; 80048; 84134; 85025; 85652; 86140; 97597; 99211; 99212; Q4187